=== PATIENT | male | born 1970 | race African-American/Black ===

== ENCOUNTER 2017-01-18 21:39 | Emergency (ER) | payer OTHER ==
[2017-01-18] MEDS ORDERED: Hyoscyamine 0.125 MG Tab.SL SL ONE (22:17)
--- NOTE | 2017-01-18 22:22 | EDM.PDOC ---
ED HPI GENERAL MEDICAL PROBLEM - General Chief Complaint: Abdominal Pain Stated Complaint: ABDOMINAL PAIN, DIARRHEA Time Seen by Provider: 01/18/17 21:47 Source of Information: Reports: Patient, Family, RN Notes Reviewed History Limitations: Reports: No Limitations - History of Present Illness INITIAL COMMENTS - FREE TEXT/NARRATIVE: 46-year-old gentleman presents emergency department day complaint of loose stools watery diarrhea and generalized abdominal cramping. He states been going on for about 4 days however last stool in the emergency department was firm denies any fevers does feel nauseated no vomiting he is the only one that ill in the household he does have patient contact at the neighboring hospital Abdomen Pain Score (Numeric/FACES): 8 - Related Data Allergies Allergy/AdvReac Type Severity Reaction Status Date / Time No Known Allergies Allergy Verified 12/04/15 21:59 Home Meds: Home Meds NK [No Known Home Meds] 12/04/15 [History] Past Medical History Musculoskeletal History: Reports: Back Pain, Chronic - Infectious Disease History Infectious Disease History: Reports: Chicken Pox - Past Surgical History GI Surgical History: Reports: Appendectomy, Hernia, Inguinal Social & Family History - Tobacco Use Smoking Status *Q: Current Every Day Smoker Years of Tobacco use: 30 Packs/Tins Daily: 0.5 Used Tobacco, but Quit: No Second Hand Smoke Exposure: No - Caffeine Use Caffeine Use: Reports: Coffee - Alcohol Use Days Per Week of Alcohol Use: 3 Number of Drinks Per Day: 5 Total Drinks Per Week: 15 - Recreational Drug Use Recreational Drug Use: No ED ROS GENERAL - Review of Systems Review Of Systems: See Below Constitutional: Reports: No Symptoms Respiratory: Reports: No Symptoms Cardiovascular: Reports: No Symptoms GI/Abdominal: Reports: Abdominal Pain, Diarrhea, Nausea. Denies: Black Stool, Bloody Stool, Vomiting : Reports: No Symptoms ED EXAM, GI/ABD - Physical Exam Exam: See Below Exam Limited By: No Limitations General Appearance: Alert (In), WD/WN, No Apparent Distress Respiratory/Chest: No Respiratory Distress, Lungs Clear, Normal Breath Sounds, No Accessory Muscle Use Cardiovascular: Regular Rate, Rhythm, No Murmur GI/Abdominal Exam: Soft, Non-Tender Course - Vital Signs Last Recorded V/S: Last Vital Signs Temp 97.0 F 01/18/17 21:53 Pulse 71 01/18/17 23:44 Resp 16 01/18/17 23:44 BP 141/86 H 01/18/17 23:44 Pulse Ox 100 01/18/17 23:44 - Orders/Labs/Meds Orders: Active Orders 24 hr Category Date Time Status Peripheral IV Care [RC] . DIRECTED Care 01/19/17 00:12 Active Abdomen Pelvis w Cont [CT] Stat Exams 01/19/17 00:40 Taken Sodium Chloride 0.9% [Normal Saline] 1,000 ml Med 01/19/17 00:15 Active IV ASDIRECTED Sodium Chloride 0.9% [Saline Flush] Med 01/19/17 00:11 Active 10 ml FLUSH ASDIRECTED PRN Peripheral IV Insertion Adult [OM.PC] Urgent Oth 01/19/17 00:11 Ordered Medication Orders Sodium Chloride (Normal Saline) 1,000 mls @ 500 mls/hr IV ASDIRECTED PARKER Last Admin: 01/19/17 00:21 Dose: 500 mls/hr Sodium Chloride (Saline Flush) 10 ml FLUSH ASDIRECTED PRN PRN Reason: Keep Vein Open Last Admin: 01/19/17 00:22 Dose: 10 ml Labs: Laboratory Tests 01/18/17 01/18/17 01/18/17 Range/Units 22:30 22:31 22:31 WBC 7.7 (4.5-11.0) K/uL RBC 5.19 (4.30-5.90) M/uL Hgb 14.2 (12.0-15.0) g/dL Hct 42.6 (40.0-54.0) % MCV 82 (80-98) fL MCH 27 (27-31) pg MCHC 33 (32-36) % Plt Count 281 (150-400) K/uL Neut % (Auto) 60 (36-66) % Lymph % (Auto) 23 L (24-44) % [place] % (Auto) 13 H (2-6) % Eos % (Auto) 3 (2-4) % Baso % (Auto) 1 (0-1) % Sodium 138 L (140-148) mmol/L Potassium 4.3 (3.6-5.2) mmol/L Chloride 102 (100-108) mmol/L Carbon Dioxide 29 (21-32) mmol/L Anion Gap 11.3 (5.0-14.0) mmol/L BUN 17 D (7-18) mg/dL Creatinine 1.2 (0.8-1.3) mg/dL Est Cr Clr Drug Dosing 78.58 mL/min Estimated GFR (MDRD) > 60 (>60) Glucose 85 (74-106) mg/dL Lactic Acid (0.4-2.0) mmol/L Calcium 9.8 (8.5-10.1) mg/dL Lipase 241 (73-393) U/L 01/19/17 Range/Units 01:35 WBC (4.5-11.0) K/uL RBC (4.30-5.90) M/uL Hgb (12.0-15.0) g/dL Hct (40.0-54.0) % MCV (80-98) fL MCH (27-31) pg MCHC (32-36) % Plt Count (150-400) K/uL Neut % (Auto) (36-66) % Lymph % (Auto) (24-44) % [place] % (Auto) (2-6) % Eos % (Auto) (2-4) % Baso % (Auto) (0-1) % Sodium (140-148) mmol/L Potassium (3.6-5.2) mmol/L Chloride (100-108) mmol/L Carbon Dioxide (21-32) mmol/L Anion Gap (5.0-14.0) mmol/L BUN (7-18) mg/dL Creatinine (0.8-1.3) mg/dL Est Cr Clr Drug Dosing mL/min Estimated GFR (MDRD) (>60) Glucose (74-106) mg/dL Lactic Acid 0.8 (0.4-2.0) mmol/L Calcium (8.5-10.1) mg/dL Lipase (73-393) U/L Meds: Medications Generic Name Dose Route Start Last Admin Trade Name Freq PRN Reason Stop Dose Admin Sodium Chloride 1,000 mls @ 500 mls/hr 01/19/17 00:15 01/19/17 00:21 Normal Saline IV 500 mls/hr ASDIRECTED PARKER Administration Sodium Chloride 10 ml 01/19/17 00:11 01/19/17 00:22 Saline Flush FLUSH 10 ml ASDIRECTED PRN Administration Keep Vein Open Discontinued Medications Generic Name Dose Route Start Last Admin Trade Name Markusq PRN Reason Stop Dose Admin Hydromorphone HCl 1 mg 01/18/17 23:23 01/18/17 23:40 Dilaudid IM 01/18/17 23:24 1 mg ONETIME ONE Administration Hyoscyamine 0.125 mg 01/18/17 22:17 01/18/17 22:50 Hyomax-Sl SL 01/18/17 22:18 0.125 mg ONETIME ONE Administration Sodium Chloride 77 mls @ 3 mls/sec 01/19/17 00:45 01/19/17 00:53 Normal Saline IV 01/19/17 00:46 3 mls/sec ASDIRECTED STA Administration Iopamidol 123 ml 01/19/17 00:45 01/19/17 00:53 Isovue-300 (61%) IV 01/19/17 00:46 150 ml . DIRECTED STA Administration Ketorolac Tromethamine 30 mg 01/19/17 01:29 01/19/17 01:38 Toradol IVPUSH 01/19/17 01:30 30 mg ONETIME ONE Administration Ondansetron HCl 4 mg 01/19/17 01:01 01/19/17 01:06 Zofran IVPUSH 01/19/17 01:02 4 mg ONETIME ONE Administration Ondansetron HCl Confirm 01/19/17 01:02 01/19/17 01:05 Zofran Administered 01/19/17 01:03 Not Given Dose 4 mg .ROUTE .STK-MED ONE Departure - Departure Time of Disposition: 02:14 Disposition: Home, Self-Care 01 Condition: Good Clinical Impression: Abdominal pain Qualifiers: Abdominal location: generalized Qualified Code(s): R10.84 - Generalized abdominal pain - Discharge Information Forms: ED Department Discharge Additional Instructions: Use ibuprofen as needed for pain control, Please followup with your primary care provider in 3-5 days if not better, please call return to the emergency department with worsening of symptoms. - My Orders Last 24 Hours: My Active Orders 01/19/17 00:11 Sodium Chloride 0.9% [Saline Flush] 10 ml FLUSH ASDIRECTED PRN Peripheral IV Insertion Adult [OM.PC] Urgent 01/19/17 00:12 Peripheral IV Care [RC] . DIRECTED 01/19/17 00:15 Sodium Chloride 0.9% [Normal Saline] 1,000 ml IV ASDIRECTED 01/19/17 00:40 Abdomen Pelvis w Cont [CT] Stat - Assessment/Plan Last 24 Hours: My Active Orders 01/19/17 00:11 Sodium Chloride 0.9% [Saline Flush] 10 ml FLUSH ASDIRECTED PRN Peripheral IV Insertion Adult [OM.PC] Urgent 01/19/17 00:12 Peripheral IV Care [RC] . DIRECTED 01/19/17 00:15 Sodium Chloride 0.9% [Normal Saline] 1,000 ml IV ASDIRECTED 01/19/17 00:40 Abdomen Pelvis w Cont [CT] Stat Plan: Assessment Acuity = acute Site and laterality = abdominal pain with diarrhea diarrhea is now improving Etiology = unclear etiology Manifestations = none Location of injury = Home Lab values = CBC, BMP, lipase, lactic acid all within normal limits CT scan shows a short segment of small bowel is thickened of unclear etiology Plan No relief Anaspaz, no relief from Dilaudid he did get good relief with Toradol plan is to discharge home follow-up with primary care in the next 3-5 days if no improvement ibuprofen as needed for pain control Patient was in agreement with the plan all questions were answered, they were instructed to return to the emergency department or call for worsening symptoms. This note was dictated using [employer] voice recognition software please call with any questions.
[2017-01-18] MEDS ORDERED: HYDROmorphone 1 MG/ML Syringe IM ONE (23:23)
[2017-01-18 23:44] VITALS: BP 141/86
[2017-01-19] MEDS ORDERED: Sodium Chloride 0.9% 10 ML Syringe FLUSH PRN (00:11)
[2017-01-19] MEDS ORDERED: Sodium Chloride 0.9% 1,000 ML IV SCH (00:15)
[2017-01-19] MEDS ORDERED: Iopamidol 612 MG/ML 150 ML Bottle IV STA (00:45)
[2017-01-19] MEDS ORDERED: Ondansetron 4 MG/2 ML SDV IVPUSH ONE (01:01)
[2017-01-19] MEDS ORDERED: Ondansetron 4 MG/2 ML SDV ONE (01:02)
[2017-01-19] MEDS ORDERED: Ketorolac 30 MG/ML SDV IVPUSH ONE (01:29)
== END 2017-01-19 02:25 | disposition home or self-care (01) ==
LOC: JP.ED 21:39
DX: R10.84 Generalized abdominal pain (principal); R19.7 Diarrhea, unspecified; F17.210 Nicotine dependence, cigarettes, uncomplicated; Z90.89 Acquired absence of other organs
CPT/HCPCS: 36415; 74177; 80048; 83605; 83690; 85025; 89055; 96361; 96372; 96374; 96375; 99284; A9270; J1170; J1885; J2405; J7030; J7040; J7050

== ENCOUNTER 2023-10-27 13:16 | Emergency (ER) | payer OTHER ==
[2023-10-27 13:30] VITALS: BP 120/78; PULSE 66
[2023-10-27] MEDS ORDERED: Naloxone 0.4 MG/ML SDV IVPUSH PRN (14:16)
[2023-10-27] MEDS: HYDROmorphone 0.5 MG/0.5 ML Syringe IM ONE (14:23)
== END 2023-10-27 15:21 | disposition home or self-care (01) ==
LOC: JP.ED 13:16
DX: M62.830 Muscle spasm of back (principal); I10 Essential (primary) hypertension; F17.200 Nicotine dependence, unspecified, uncomplicated; Z79.899 Other long term (current) drug therapy
CPT/HCPCS: 96372; 99283; J1170

== ENCOUNTER 2024-03-30 15:28 | Emergency (ER) | payer OTHER ==
[2024-03-30 15:42] VITALS: BP 134/71; PULSE 85
== END 2024-03-30 16:49 | disposition home or self-care (01) ==
LOC: JP.ED 15:28
DX: S99.921A Unspecified injury of right foot, initial encounter (principal); I10 Essential (primary) hypertension; Z79.899 Other long term (current) drug therapy; Z90.49 Acquired absence of other specified parts of digestive tract; W20.8XXA Other cause of strike by thrown, projected or falling object, initial encounter
CPT/HCPCS: 73630-26-RT; 73630-RT; 99283